=== PATIENT | female | born 1965 | race Caucasian/White ===

== ENCOUNTER 2018-05-11 01:36 | Emergency (ER) | payer BC ==
[2018-05-11] MEDS ORDERED: KETOROLAC 30 MG/ML VIAL IVP ONE (01:45)
[2018-05-11] MEDS ORDERED: 0.9 % SODIUM CHLORIDE 1000ML 1,000 ML IV SCH (01:45)
[2018-05-11] MEDS ORDERED: ONDANSETRON HCL IV 4 MG/2 ML VIAL IVP ONE (01:45)
[2018-05-11 01:55] LABS: BASO % 0.9 % (0-6); EOS % 2.3 % (0-6); GRAN % 39.8 % (47-80); HEMATOCRIT 41.7 % (35.0-47.0); HEMOGLOBIN 13.6 gm/dl (11.6-16.0); LYMPH % 48.6 % (16-45); MEAN CELL VOLUME 91.6 fl (81-97); MEAN CORPUSCULAR HEMOGLOBIN 29.9 pg (27-33); MEAN CORPUSCULAR HGB CONC 32.6 g/dl (32-36); MEAN PLATELET VOLUME 8.7 fl (7.4-10.4); MONO % 8.4 % (0-9); PLATELET COUNT 351 K/uL (130-400); RED BLOOD COUNT 4.55 M/uL (3.80-5.40); RED CELL DISTRIBUTION WIDTH 13.4 % (11.5-14.5); WHITE BLOOD COUNT W/O DIFF 5.7 K/uL (4.2-12.2)
--- NOTE | 2018-05-11 01:55 | Emergency Department Record ---
History of Present Illness - General Chief Complaint: Abdominal Pain Stated Complaint: ABDOMINAL PAIN Time Seen by Provider: 05/11/18 01:36 Source: Patient Mode of Arrival: Ambulatory Limitations: No limitations - History of Present Illness Initial Comments: 53 yo female presents to ED for evaluation of diffuse, vague abdominal "pressure " associated with nausea symptoms. Patient denies fevers, chills, vomiting, urinary symptoms, or change in stools. Patient reports that she is s/p cholecystectomy and hysterectomy, denies appendectomy. Patient denies history of kidney stones but does report a history of chronic intermittent back pain symptoms. Patient denies flank pain or chest pain symptoms. MD Complaint: Abdominal pain Onset/Timin -: Days(s) Location: Diffuse Radiation: None Severity: Moderate Severity scale (1-10): 6 Consistency: Intermittent Improves With: Nothing Worsens With: Nothing Associated Symptoms: Denies other symptoms - Related Data Patient : No Home Medications Medication Instructions Recorded Confirmed Last Taken Atorvastatin Calcium 10 mg PO QHS 05/11/18 05/11/18 05/11/18 Estradiol 1 applic TOP Q72HR 05/11/18 05/11/18 Unknown Allergies Allergy/AdvReac Type Severity Reaction Status Date / Time codeine Allergy VOMITING Verified 05/11/18 01:53 doxycycline [From Vibra-Tabs] Allergy DIZZINESS Verified 05/11/18 01:53 Review of Systems Constitutional: Denies: Chills, Fever, Malaise, Night sweats Eyes: Denies: Eye discharge, Eye pain ENT: Denies: Congestion, Ear pain, Epistaxis Respiratory: Denies: Cough, Dyspnea Cardiovascular: Denies: Chest pain, Dyspnea on exertion Endocrine: Denies: Fatigue, Heat or cold intolerance Gastrointestinal: Reports: Abdominal pain, Nausea. Denies: Vomiting Genitourinary: Denies: Incontinence, Retention Musculoskeletal: Denies: Arthralgia, Back pain Skin: Denies: Bruising, Change in color Neurological: Denies: Abnormal gait, Confusion, Headache, Seizure Psychiatric: Denies: Anxiety Hematological/Lymphatic: Denies: Anemia, Blood Clots Physical Exam - General General Appearance: Alert, Oriented x3, Cooperative, Mild distress Limitations: No limitations - Head Head exam: Atraumatic, Normocephalic, Normal inspection Head exam detail: negative: Abrasion, Contusion, Bae's sign, General tenderness, Hematoma, Laceration - Eye Eye exam: Normal appearance. negative: Conjunctival injection, Periorbital swelling, Periorbital tenderness, Scleral icterus - ENT Ear exam: negative: Auricular hematoma, Auricular trauma Nasal Exam: negative: Active bleeding, Discharge, Dried blood, Foreign body Mouth exam: negative: Drooling, Laceration, Muffled voice, Tongue elevation - Neck Neck exam: Normal inspection. negative: Meningismus, Tenderness - Respiratory Respiratory exam: Normal lung sounds bilaterally. negative: Rales, Respiratory distress, Rhonchi, Stridor - Cardiovascular Cardiovascular Exam: Regular rate, Normal rhythm, Normal heart sounds - GI/Abdominal GI/Abdominal exam: Soft, Tenderness (TTP RLQ on examination, no rebound or guarding symtpoms present.). negative: Rebound, Rigid - Rectal Rectal exam: Deferred - exam: Deferred - Extremities Extremities exam: Normal inspection. negative: Pedal edema, Tenderness - Back Back exam: Denies: CVA tenderness (R), CVA tenderness (L) - Neurological Neurological exam: Alert, Normal gait, Oriented X3 - Psychiatric Psychiatric exam: Normal affect, Normal mood - Skin Skin exam: Normal color. negative: Abrasion Type of lesion: negative: abrasion Course Vital Signs 05/11/18 01:44 Temperature 98 F Pulse Rate [ 107 H Pulse Ox Probe] Respiratory 20 Rate Blood Pressure 175/89 [Left Arm] Pulse Ox 99 - Reevaluation(s) Reevaluation #1: 05/11/18 01:57 EKG: NSR 94 Normal axis, normal intervals No acute ST-T wave changes Reevaluation #2: 05/11/18 02:15 Laboratory studies were reviewed and are grossly unremarkable for an acute process. Reevaluation #3: 05/11/18 03:58 CT Abdomen and Pelvis: No acute findings Patient was updated on all results, reports mild improvement in her symptoms, and appears stable for discharge at this time. Medical Decision Making - Lab Data Result diagrams: 05/11/18 01:50 05/11/18 01:50 Disposition Disposition: Discharge Clinical Impression: Abdominal cramping Disposition: Home, Self-Care Condition: (2) Stable Instructions: Abdominal Pain (ED) Additional Instructions: Return to ED if your symptoms worsen or if you have any concerns. Follow-up with your family doctor in 3-5 days as directed. Forms: Patient Portal Access Time of Disposition: 03:59 Quality - Quality Measures Quality Measures: N/A - Blood Pressure Screening Does Patient Have Any of the Following: No Blood Pressure Classification: Pre-Hypertensive BP Reading Systolic Measurement: 162 Diastolic Measurement: 84 Screening for High Blood Pressure: < Pre-Hypertensive BP, F/U Documented > [ [id number]] Pre-Hypertensive Follow-up Interventions: Referral to alternative/primary care provider.
[2018-05-11 02:07] LABS: BLOOD UREA NITROGEN 7 mg/dL (6-20); CREATININE 0.6 mg/dL (0.5-0.9); EST GLOMERULAR FILTRATION RATE > 60 mL/min
[2018-05-11 02:08] LABS: LIPASE 21 U/L (13-60); TOTAL PROTEIN 7.6 g/dL (6.6-8.7)
[2018-05-11 02:10] LABS: GLUCOSE,RANDOM 116 mg/dL (74-109)
[2018-05-11 02:11] LABS: URINE APPEARANCE CLEAR; URINE BILIRUBIN NEGATIVE (NEGATIVE); URINE BLOOD NEGATIVE (NEGATIVE); URINE COLOR YELLOW; URINE GLUCOSE (UA) NEGATIVE (NEGATIVE); URINE KETONE NEGATIVE (NEGATIVE); URINE LEUKOCYTE ESTERASE TRACE (NEGATIVE); URINE NITRITE NEGATIVE (NEGATIVE); URINE PROTEIN NEGATIVE (NEGATIVE); URINE UROBILINOGEN 0.2 E.U./dL (0.20 - 1.00)
[2018-05-11 02:13] LABS: ALB/GLOB RATIO 1.3 (1.1-1.8); ALBUMIN 4.3 g/dL (4.0-5.0); ALKALINE PHOSPHATASE 106 U/L (45-87); ALT/SGPT 16 U/L (<33); AST/SGOT 15 U/L (10.0-35.0)
[2018-05-11 02:19] LABS: URINE BACTERIA FEW; URINE RBC NONE SEEN (NONE SEEN); URINE SQUAMOUS EPITHELIAL CELL 16 - 20 /hpf; URINE WBC 0 - 2 (0-2/hpf)
[2018-05-11] MEDS ORDERED: HYOSCYAMINE SULFATE ODT 0.125 MG TAB.SUBL SL ONE (02:22)
--- NOTE | 2018-05-13 11:23 | CT SCAN REPORT ---
EXAM: CT SCAN ABDOMEN/PELVIS W CONTRAST HISTORY: ABDOMINAL PAIN AND NAUSEA. PRESSURE SENSATION WITHIN THE UPPER CENTRAL ABDOMEN AND RIGHT LOWER QUADRANT ABDOMINAL PAIN. TECHNIQUE: Standard CT imaging of the abdomen and pelvis was performed with contrast. 100 mL of Omnipaque-300 were administered. COMPARISON: None. FINDINGS: The lung bases are clear. A tiny hiatal hernia is present. There is mild hepatic steatosis. There are no focal hepatic abnormalities. The gallbladder is surgically absent. The biliary tree, pancreas, spleen, and adrenal glands are normal. The kidneys and ureters are unremarkable. The aorta is normal in caliber. There is no retroperitoneal lymphadenopathy. The large and small bowel loops including the appendix are normal. There are no focal inflammatory changes. There is no pneumoperitoneum or ascites. The uterus is surgically absent. The urinary bladder is normal. Degenerative changes are present at the lumbosacral level. There are no acute osseous abnormalities. IMPRESSION: 1. NO ACUTE INTRA-ABDOMINAL PATHOLOGY IDENTIFIED. 2. MILD HEPATIC STEATOSIS. 3. POSTSURGICAL CHANGES ABOVE. JOB NUMBER: [id number] [facility]
== END 2018-05-11 04:06 | disposition home or self-care (01) ==
LOC: ER 01:36
DX: R10.31 Right lower quadrant pain (principal); R11.0 Nausea; M79.622 Pain in left upper arm; R07.1 Chest pain on breathing; Z87.442 Personal history of urinary calculi
CPT/HCPCS: 74177; 80053; 81001; 83690; 85025; 93005; 93010; 96374; 96375; 99284; J1885; J2405; J7030